=== PATIENT | male | born 1935 | race Caucasian/White ===

== ENCOUNTER 2018-05-18 22:19 | Emergency (ER) | payer BC, MEDICARE ==
[2018-05-18 22:49] VITALS: BP 173/90; PULSE 86; RESP 18; TEMP 97.2; O2SAT 99
[2018-05-18 23:03] LABS: APPEARANCE,URINE Clear; BILIRUBIN,URINE NEGATIVE (NEGATIVE); COLOR,URINE Yellow; GLUCOSE, URINE (UA) NEGATIVE (NEGATIVE); KETONES,URINE NEGATIVE (NEGATIVE); LEUKOCYTE ESTERASE ,URINE 1+ (NEGATIVE); NITRATE,URINE NEGATIVE (NEGATIVE); OCCULT BLOOD,URINE 3+ (NEG-TRACE); PH,URINE 6.5; UROBILINOGEN,URINE 0.2 (0.2-1.0 EU)
[2018-05-18 23:08] LABS: CRYSTALS NEGATIVE (0-3 AVE/HPF); EPITHELIAL CELLS 0-2 (SQUAMOUS)
[2018-05-18 23:09] LABS: BACTERIA 1+ (< 1+)
== END 2018-05-18 23:30 | disposition home or self-care (01) ==
LOC: ED 22:19
DX: R33.9 Retention of urine, unspecified (principal)
CPT/HCPCS: 51798; 81001; 87088; 99282; 99283

== ENCOUNTER 2018-12-14 16:12 | Emergency (ER) | payer BC, MEDICARE ==
[2018-12-14 17:28] VITALS: BP 185/83; PULSE 79; RESP 22; TEMP 97.6; O2SAT 98
== END 2018-12-14 18:10 | disposition home or self-care (01) ==
LOC: ED 16:12
DX: T83.011A Breakdown (mechanical) of indwelling urethral catheter, initial encounter (principal)
CPT/HCPCS: 51798; 99282